=== PATIENT | male | born 1940 | race Caucasian/White ===

== ENCOUNTER 2018-03-21 09:41 | Emergency (ER) | payer OTHER ==
[~2018-03-21] VITALS: Ht 182.9 cm; Wt 97.8 kg
[2018-03-21] MEDS ORDERED: SODIUM CHLORIDE FLUSH 10ML SYR IVF ONE (10:00)
[2018-03-21] MEDS ORDERED: PLEASE ENTER HEIGHT AND WEIGHT MC SCH (10:00)
[2018-03-21] MEDS ORDERED: ASPIRIN 81 MG TABLET CHEW PO ONE (10:00)
[2018-03-21] MEDS ORDERED: ASPIRIN 81 MG TABLET CHEW ONE (10:14)
[2018-03-21 11:06] LABS: BASOPHILS # (AUTO) 0.04 x10^3/uL (0-0.1); BASOPHILS % (AUTO) 1 % (0-1); EOSINOPHILS # (AUTO) 0.28 x10^3/uL (0-0.4); EOSINOPHILS % (AUTO) 4 % (1-7); LYMPHOCYTES % (AUTO) 24 % (22-44); MD NO; MEAN CORPUSCULAR HEMOGLOBIN 27.3 pg (27.5-34.5); MEAN CORPUSCULAR HGB CONC 32.5 g/dL (33.2-36.2); MEAN CORPUSCULAR VOLUME 84.2 fL (81-97); MEAN PLATELET VOLUME 8.9 fL (7.4-10.4); MONOCYTES # (AUTO) 0.58 x10^3/uL (0.2-0.8); MONOCYTES % (AUTO) 9 % (2-9); NEUTROPHILS # (AUTO) 4.17 x10^3/uL (1.8-6.8); NEUTROPHILS % (AUTO) 63 % (42-75); PLATELET COUNT 199 x10^3/uL (130-400); RED CELL DISTRIBUTION WIDTH 13.5 % (9.4-14.8)
[2018-03-21 11:11] LABS: ALANINE AMINOTRANSFERASE 27 U/L (12-78); ALBUMIN 3.5 g/dL (3.4-5.0); ANION GAP 7 mmol/L (5-15); CALCIUM 8.7 mg/dL (8.5-10.1); CHLORIDE 105 mmol/L (98-107); CREATININE 1.08 mg/dL (0.7-1.3)
[2018-03-21 11:15] LABS: ALKALINE PHOSPHATASE 41 U/L (45-117); BILIRUBIN,TOTAL 0.6 mg/dL (0.2-1.0); TOTAL PROTEIN 6.8 g/dL (6.4-8.2); TROPONIN I < 0.015 ng/mL (0.000-0.045)
[2018-03-21 11:55] VITALS: BP 146/77
[2018-03-21 12:11] LABS: TROPONIN I < 0.015 ng/mL (0.000-0.045)
== END 2018-03-21 13:23 | disposition home or self-care (01) ==
LOC: ED 13:17
DX: R07.89 Other chest pain (principal); I25.2 Old myocardial infarction; I11.9 Hypertensive heart disease without heart failure; I25.10 Atherosclerotic heart disease of native coronary artery without angina pectoris; E11.9 Type 2 diabetes mellitus without complications; E78.5 Hyperlipidemia, unspecified; Z87.891 Personal history of nicotine dependence
CPT/HCPCS: 36415; 71045; 80053; 84484; 85025; 93005; 99285

== ENCOUNTER 2018-11-02 09:50 | Emergency (ER) | payer OTHER ==
[~2018-11-02] VITALS: Ht 182.9 cm; Wt 100.0 kg
--- NOTE | 2018-11-02 10:46 | NUR ---
PT PRESENTED TO ED D/T DIZZINESS. PER PT REPORT 2 GLF FALLS THIS AM. PT STATES HE DID NOT HIT HIS HEAD, NECK, OR BACK. PER REPORT PT ATE PIZZA THAT WAS LEFTOVER FROM TUESDAY AND THINKS HE MAY HAVE "FOOD POISIONING". VOMIT X1.
[2018-11-02] MEDS ORDERED: HYDR25TA6 PO (10:52)
[2018-11-02] MEDS ORDERED: CLOP75TA PO (10:52)
[2018-11-02] MEDS ORDERED: METF500T17 PO (10:52)
[2018-11-02] MEDS ORDERED: FENO48TA5 PO (10:52)
[2018-11-02] MEDS ORDERED: LEVO100T5 PO (10:52)
[2018-11-02] MEDS ORDERED: LISI5TAB7 PO (10:52)
[2018-11-02] MEDS ORDERED: ESOM40CA PO (10:52)
[2018-11-02] MEDS ORDERED: ATOR-2 PO (10:52)
[2018-11-02] MEDS ORDERED: GLIP10TA13 PO (10:52)
--- NOTE | 2018-11-02 11:32 | NUR ---
Sandra sims in [facility] - 11/02/18 at 1133 by TAMI RN REQUESTED FOR HOSPITAL BED.
--- NOTE | 2018-11-02 12:03 | NUR ---
ERMD AT BEDSIDE EVALUATING PT.
[2018-11-02] MEDS ORDERED: MECLIZINE CHEWABLE 25 MG TAB ONE (12:09)
[2018-11-02] MEDS ORDERED: ONDANSETRON ODT 4 MG ONE (12:09)
--- NOTE | 2018-11-02 12:11 | NUR ---
PT MEDICATED PER EMAR.
[2018-11-02] MEDS ORDERED: MECLIZINE CHEWABLE 25 MG TAB PO ONE (12:30)
[2018-11-02] MEDS ORDERED: ONDANSETRON ODT 4 MG PO ONE (12:30)
--- NOTE | 2018-11-02 12:47 | NUR ---
PT IN CT.
[2018-11-02 12:53] LABS: BASOPHILS # (AUTO) 0.02 x10^3/uL (0-0.1); BASOPHILS % (AUTO) 0 % (0-1); EOSINOPHILS # (AUTO) 0.12 x10^3/uL (0-0.4); EOSINOPHILS % (AUTO) 2 % (1-7); LYMPHOCYTES # (AUTO) 0.85 x10^3/uL (1-3.4); LYMPHOCYTES % (AUTO) 14 % (22-44); MD NO; MEAN CORPUSCULAR HEMOGLOBIN 26.8 pg (27.5-34.5); MEAN CORPUSCULAR HGB CONC 32.3 g/dL (33.2-36.2); MEAN CORPUSCULAR VOLUME 82.8 fL (81-97); MEAN PLATELET VOLUME 8.9 fL (7.4-10.4); MONOCYTES # (AUTO) 0.37 x10^3/uL (0.2-0.8); MONOCYTES % (AUTO) 6 % (2-9); NEUTROPHILS # (AUTO) 4.69 x10^3/uL (1.8-6.8); NEUTROPHILS % (AUTO) 78 % (42-75); PLATELET COUNT 195 x10^3/uL (130-400); RED BLOOD COUNT 5.11 x10^6/uL (4.38-5.82); RED CELL DISTRIBUTION WIDTH 13.3 % (9.4-14.8)
[2018-11-02 13:01] VITALS: BP 125/66
[2018-11-02 13:07] LABS: ALBUMIN 3.3 g/dL (3.4-5.0); ANION GAP 7 mmol/L (5-15); CALCIUM 8.8 mg/dL (8.5-10.1); CHLORIDE 104 mmol/L (98-107)
[2018-11-02 13:11] LABS: ALANINE AMINOTRANSFERASE 21 U/L (12-78); ALKALINE PHOSPHATASE 41 U/L (45-117); BILIRUBIN,TOTAL 0.4 mg/dL (0.2-1.0); CREATININE 0.95 mg/dL (0.7-1.3); TOTAL PROTEIN 6.2 g/dL (6.4-8.2)
--- NOTE | 2018-11-02 13:22 | NUR ---
ERMD AT BEDSIDE.
--- NOTE | 2018-11-02 13:29 | NUR ---
PT BEING DISCHARGED HOME IN A STABLE CONDITION. DC INSTRUCTIONS WERE DISCUSSED WITH PT. PT VERBALIZED UNDERSTANDING. NO FURTHER QUESTIONS OR CONCERNS WERE EXPRESSED AT THAT TIME. RN TO WALK WITH PT TO DC DESK.
== END 2018-11-02 13:31 | disposition home or self-care (01) ==
LOC: ED 13:25
DX: H81.12 Benign paroxysmal vertigo, left ear (principal); H81.392 Other peripheral vertigo, left ear; I25.10 Atherosclerotic heart disease of native coronary artery without angina pectoris; I25.2 Old myocardial infarction; E78.5 Hyperlipidemia, unspecified; I10 Essential (primary) hypertension; E11.9 Type 2 diabetes mellitus without complications
CPT/HCPCS: 36415; 70450; 71045; 80053; 85025; 93005; 99284; Q0162

== ENCOUNTER 2019-03-03 19:41 | Emergency (ER) | payer OTHER ==
[~2019-03-03] VITALS: Ht 182.9 cm; Wt 103.6 kg
[~2019-03-03 19:41] MED LIST: ATOR-2 PO; CLOP75TA PO; ESOM40CA PO; FENO48TA5 PO; GLIP10TA13 PO; HYDR25TA6 PO; LEVO100T5 PO; LISI5TAB7 PO; METF500T17 PO
[2019-03-03 19:43] VITALS: BP 167/72
[2019-03-03] MEDS ORDERED: OXYcodone/APAP 5/325MG TABLET ONE (20:14)
[2019-03-03] MEDS ORDERED: OXYcodone/APAP 5/325MG TABLET PO ONE (20:30)
== END 2019-03-03 20:45 | disposition home or self-care (01) ==
LOC: EDBD 20:39 → ED 20:39
DX: K08.89 Other specified disorders of teeth and supporting structures (principal); E78.5 Hyperlipidemia, unspecified; E11.9 Type 2 diabetes mellitus without complications; I10 Essential (primary) hypertension; I25.10 Atherosclerotic heart disease of native coronary artery without angina pectoris
CPT/HCPCS: 99283